=== PATIENT | female | born 1995 | race Caucasian/White ===

== ENCOUNTER 2016-11-21 19:50 | Emergency (ER) | payer OTHER ==
[~2016-11-21] VITALS: Ht 149.9 cm; Wt 59.8 kg
[~2016-11-21 19:50] MED LIST: ACETAMINOPHEN; ADVAIR 100/501 DISK IH; ADVAIR 250/501 DISK IH; ADVAIR HFA120 INHALA IH; ALTAVERA1 EACH PO; BUTALBITAL; CAFFEINE; DIFLUCAN150 MG PO; DOCUSATE CALCI240 MG PO; HUMALOG100 UNIT/1 SC; HYDROCODON-ACE1 EAC7 PO; KEFLEX500 MG PO; LANTUS 10100 UNITS/ SC; LANTUS 3 M100 UNITS1 SC; LANTUS100 UNIT/1 SQ; LEVAQUIN500 MG PO; LEVORA-281 EACH PO; LEVOTHYROXINE100 MCG PO; LEVOTHYROXINE112 MCG PO; LEVOTHYROXINE75 MCG PO; LIDOCAINE HCL20 ML PR; Lantus 3 ml Solostar SC; NOVOLIN,HU100 UNITS1 SC; NOVOLOG; NOVOLOG 10100 UNITS/ SC; NOVOLOG PE100 UNITS/ SC; NOVOLOG100 UNIT/2 SQ; NovoLOG, HumaLOG SC; PEPCID20 MG PO; PERCOCET 5/31 TABLET PO; PORTIA 28 DA1 TABLET PO; SENNA8.6 M1 PO; TYLENOL WITH C1 EACH PO; ZOFRAN ODT4 MG PO; ZOFRAN ODT8 MG PO; ZOFRAN4 MG PO; ZOLOFT50 MG; Zoloft PO; [UNRECOGNIZED DRUG - OTHER] PO; lantus
[2016-11-21] MEDS ORDERED: BACTRIM,SEPT1 TABLET PO (22:19)
[2016-11-21] MEDS ORDERED: NORCO 5/3251 TABLET PO (22:19)
[2016-11-21 22:34] VITALS: BP 113/75
== END 2016-11-21 22:35 | disposition home or self-care (01) ==
LOC: EME 19:50
PROC: 0H99XZZ Drainage of Perineum Skin, External Approach (ICD-10-PCS; principal; 2016-11-21)
DX: L02.215 Cutaneous abscess of perineum (principal); Z86.14 Personal history of Methicillin resistant Staphylococcus aureus infection; E11.9 Type 2 diabetes mellitus without complications
CPT/HCPCS: 99281; 99283

== ENCOUNTER 2017-05-16 19:11 | Emergency (ER) | payer OTHER ==
[~2017-05-16] VITALS: Ht 149.9 cm; Wt 53.5 kg
[~2017-05-16 19:11] MED LIST changes: +BACTRIM,SEPT1 TABLET PO; +NORCO 5/3251 TABLET PO
[2017-05-16 19:44] LABS: HEMATOCRIT 37.1 % (36.0-46.0); MCH 24.5 PG (29.0-34.0); MCHC 31.5 G/DL (30.0-36.0); MCV 77.8 FL (83-99); MEAN PLAT.VOLUME 9.5 uM^3 (9.5-12.4); PLATELET COUNT 301 K/uL (156-360); RBC DIS.WIDTH-CV 15.4 % (11.8-14.6); RBC DIS.WIDTH-SD 44.2 % (39-53); RED BLOOD COUNT 4.77 M/uL (3.80-5.20)
[2017-05-16 19:55] LABS: CHLORIDE 105 mEq/L (99-109); POTASSIUM 3.7 mEq/L (3.7-5.4); SODIUM 138 mEq/L (136-147)
[2017-05-16 19:57] LABS: GLUCOSE 193 mg/dL (70-99)
[2017-05-16 19:59] LABS: ANION GAP 11 MEQ/L (2-14); TOTAL BILIRUBIN 0.3 mg/dL (0.0-1.0)
[2017-05-16 20:01] LABS: ALKALINE PHOSPHATASE 53 IU/L (3-129); GFR ESTIMATE (CALCULATED) > 59 mL/min/
[2017-05-16 20:02] LABS: UREA NITROGEN (BUN) 6 mg/dL (9-23)
[2017-05-16 20:05] LABS: LIPASE 23 U/L (1.0-51.0)
[2017-05-16 20:13] LABS: QUANTITATIVE HCG < 4.0 MIU/ML
[2017-05-16 20:17] LABS: ADD MIUA? YES; BILIRUBIN NEGATIVE; BLOOD MODERATE; COLOR STRAW ((YELLOW)); GLUCOSE (STRIP) NEGATIVE; KETONES 20; LEUKOCYTES NEGATIVE; NITRITE NEGATIVE; PROTEIN (STRIP) NEGATIVE; UROBILINOGEN 0.2 MG/DL (0.2-1.0)
[2017-05-16 20:24] LABS: BACTERIA RARE /HPF; CALCIUM OXALATE CRYSTALS 3+ /HPF; EPITHELIAL CELLS 1+ /HPF; MUCUS TRACE /LPF; RED BLOOD CELLS 0-5 /HPF (0-5); UCUL ADDED? NO; WHITE BLOOD CELLS 0-5 /HPF (0-5)
[2017-05-16] MEDS ORDERED: ZOFRAN ODT4 MG PO (21:12)
[2017-05-16] MEDS ORDERED: BENTYL20 MG PO (21:12)
[2017-05-16 21:20] VITALS: BP 137/77
== END 2017-05-16 21:21 | disposition home or self-care (01) ==
LOC: EME 19:11
PROVIDERS: Nurse Practitioner Family
DX: R10.33 Periumbilical pain (principal); R11.2 Nausea with vomiting, unspecified; R19.7 Diarrhea, unspecified; R31.9 Hematuria, unspecified; R50.9 Fever, unspecified; R51 Headache; M54.9 Dorsalgia, unspecified; E03.9 Hypothyroidism, unspecified; E11.9 Type 2 diabetes mellitus without complications; Z79.4 Long term (current) use of insulin; Z86.14 Personal history of Methicillin resistant Staphylococcus aureus infection; Z72.0 Tobacco use
CPT/HCPCS: 74000; 80053; 81003; 83690; 84702; 85027; 99281; 99284

== ENCOUNTER 2017-08-14 13:19 | Emergency (ER) | payer OTHER ==
[~2017-08-14] VITALS: Ht 149.9 cm; Wt 58.1 kg
[~2017-08-14 13:19] MED LIST changes: +BENTYL20 MG PO
[2017-08-14] MEDS ORDERED: MEDROL DOSEPAK4 MG PO (19:00)
[2017-08-14] MEDS ORDERED: TORADOL10 MG PO (19:00)
[2017-08-14 19:07] VITALS: BP 118/71
== END 2017-08-14 19:07 | disposition home or self-care (01) ==
LOC: EME 13:19
DX: R51 Headache (principal); E10.9 Type 1 diabetes mellitus without complications; Z79.4 Long term (current) use of insulin; J45.909 Unspecified asthma, uncomplicated; E03.9 Hypothyroidism, unspecified; F41.9 Anxiety disorder, unspecified; F17.200 Nicotine dependence, unspecified, uncomplicated; Z86.14 Personal history of Methicillin resistant Staphylococcus aureus infection; Z88.1 Allergy status to other antibiotic agents
CPT/HCPCS: 87651 90; 99281; 99284; J1100; J1200; J1885

== ENCOUNTER 2017-09-12 09:06 | Day surgery (SDC) | payer OTHER ==
[~2017-09-12] VITALS: Ht 149.9 cm; Wt 59.0 kg
[~2017-09-12 09:06] MED LIST changes: +ADDERALL XR 2525 MG PO; +CLEOCIN150 MG PO; +ELAVIL50 MG PO; +FIORINAL 50-321 EACH PO; +INSULIN PUMP MC; -LEVOTHYROXINE112 MCG PO; +LYRICA100 MG PO; +MEDROL DOSEPAK4 MG PO; +NEURONTIN800 MG PO; +SYNTHROID100 MCG PO; +TORADOL10 MG PO; +XANAX1 MG PO
[2017-09-12 09:40] VITALS: BP 112/69
[2017-09-12] MEDS ORDERED: DILAUDID4 MG PO (13:03)
[2017-09-12] MEDS ORDERED: CIPRO500 MG PO (13:03)
[2017-09-12] MEDS ORDERED: ONDANSETRON HCL8 MG PO (13:03)
[2017-09-12] MEDS ORDERED: COLACE100 MG PO (13:03)
[2017-09-12 14:20] VITALS: BP 130/83
[2017-09-12 15:12] VITALS: BP 137/87
== END 2017-09-12 15:15 | disposition home or self-care (01) ==
LOC: SDC
PROVIDERS: Surgery
PROC: 0JB90ZZ Excision of Buttock Subcutaneous Tissue and Fascia, Open Approach (ICD-10-PCS; principal; 2017-09-12)
DX: L05.02 Pilonidal sinus with abscess (principal); E10.42 Type 1 diabetes mellitus with diabetic polyneuropathy; E03.9 Hypothyroidism, unspecified; Z86.14 Personal history of Methicillin resistant Staphylococcus aureus infection; F17.200 Nicotine dependence, unspecified, uncomplicated; Z88.2 Allergy status to sulfonamides; Z88.1 Allergy status to other antibiotic agents; Z83.3 Family history of diabetes mellitus; Z82.49 Family history of ischemic heart disease and other diseases of the circulatory system; Z83.49 Family history of other endocrine, nutritional and metabolic diseases; Z82.5 Family history of asthma and other chronic lower respiratory diseases
CPT/HCPCS: 82948; 87641; 88304; 93005; J0131; J0690; J1100; J1170; J1200; J1885; J2250; J2405; J2710; J3010; S0020